=== PATIENT | female | born 1950 | race Caucasian/White ===

== ENCOUNTER 2021-07-26 11:36 | Outpatient (CLI) | payer BC, MEDICARE ==
[2021-07-26] VITALS (19 sets, daily range): BP systolic 112–145; BP diastolic 46–105
== END 2021-07-27 23:59 | disposition home or self-care (01) ==
LOC: CARD DIAG 11:36
PROVIDERS: ATTEND Internal Medicine Interventional Cardiology
DX: R55 Syncope and collapse (principal)
CPT/HCPCS: 93660

== ENCOUNTER 2024-07-28 10:21 | Outpatient (CLI) | payer MEDICARE, BC | END 2024-07-28 23:59 | disposition home or self-care (01) | LOC: MRI02 10:21 | PROVIDERS: ATTEND Physician Assistant Medical | DX: M51.27 Other intervertebral disc displacement, lumbosacral region (principal); M47.817 Spondylosis without myelopathy or radiculopathy, lumbosacral region; M51.360 Other intervertebral disc degeneration, lumbar region with discogenic back pain only; M48.061 Spinal stenosis, lumbar region without neurogenic claudication; M43.16 Spondylolisthesis, lumbar region; M70.62 Trochanteric bursitis, left hip | CPT/HCPCS: 72148 ==